=== PATIENT | female | born 1970 | race Caucasian/White ===

== ENCOUNTER 2022-06-17 11:55 | Emergency (ER) | payer OTHER, SELFPAY ==
--- NOTE | 2022-06-17 12:11 | XR_ITS ---
PROCEDURE INFORMATION: Exam: XR Right Knee Exam date and time: 06/17/2022 1:05 PM Age: 51 years old Clinical indication: Swelling or effusion of joint; Knee; Additional info: Pain, swelling. No trauma TECHNIQUE: Imaging protocol: Radiologic exam of the Right knee. Views: 3 views. COMPARISON: None FINDINGS: Bones/joints: Normal. Soft tissues: Soft tissue swelling is demonstrated in the expected region of the medial collateral ligament. Clinically correlate. IMPRESSION: 1. No evidence of acute osseous injury. 2. Soft tissue swelling superficial to the medial knee compartment. Ligamentous injury could not be excluded.
[2022-06-17 12:14] VITALS: BP 158/73; PULSE 74; RESP 18; TEMP 36.6; O2SAT 99; BMI 27.4
--- NOTE | 2022-06-17 12:41 | CA_ITS ---
FINAL REPORT CLINICAL HISTORY: Patient was out picking blackberries 1.5 weeks ago and woke up next morning to sore RLE. She states she wasn't able to walk it hurt so bad. Pain is in posterior distal thigh region. No known trauma. Smoker. FINDINGS: DUPLEX VENOUS SONOGRAPHY OF THE RIGHT LOWER EXTREMITY Multiple transverse and longitudinal scans were performed of the femoropopliteal deep venous system, with augmentation and compression maneuvers. FINDINGS: Normal phasic flow was noted in the visualized deep venous system. No intraluminal increased echogenicity is noted to suggest thrombus. There is normal compression and augmentation of the venous structures. No abnormal venous collaterals are seen. IMPRESSION: No evidence of deep venous thrombosis of the right lower extremity. Reviewed, Interpreted and Dictated by Diane Bhardwaj MD Transcribed by Bianca Barrett Authenticated and [facility]
--- NOTE | 2022-06-17 13:37 | HMH.EDUTC ---
[facility] [place] Disposition Clinical Impression: Leg edema, right Right knee pain Qualifiers: Chronicity: acute Qualified Code(s): M25.561 - Pain in right knee Disposition: Home, Self-Care Condition on Discharge: Good Instructions: DI for Knee Pain, Methylprednisolone Injection, Ketorolac Injection Additional Instructions: Rest the extremity, Wear the ted wrap for compression, Elevate the extremity as tolerated while you are resting. Follow up with Dr. Tenorio (orthopedics). I put in a referral but you need to call his office and schedule an appointment. Follow up with your regular doctor. GO TO THE ER FOR ANY WORSENING SYMPTOMS Prescriptions: methylPREDNISolone [Medrol] 4 mg PO DIRECTED 6 Days #21 packet Transmission Status: Received by Kid[facility] Referrals: Clarice Welsh APRN [Primary Care Provider] - Len Tenorio MD [Staff Physician] - Time of Disposition: 13:43 Medical Decision Making - Medical Records Medical records reviewed: No: I reviewed the patient's medical records. - [place] Inquiry Pt receiving controlled substance: No Vital Signs: 06/17/22 12:14 06/17/22 13:50 Temperature 97.8 F 97.8 F Temperature Source Oral Pulse Rate 74 Pulse Rate [Left] 74 Respiratory Rate 18 18 Blood Pressure 158/73 H Blood Pressure [Right Arm] 158/73 H Blood Pressure Mean [Right Arm] 101 02 Sat by Pulse Oximetry 99 Orders (Tests/Meds): ED MEDICATIONS Discontinued Medications Generic Name Dose Route Start Last Admin Trade Name Freq PRN Reason Stop Dose Admin Ketorolac Tromethamine 60 mg 06/17/22 13:39 06/17/22 13:40 Ketorolac 60mg/2ml Vial IM 06/17/22 13:40 60 mg ONCE ONE Administration Methylprednisolone Sodium Succinate 125 mg 06/17/22 13:39 06/17/22 13:40 Methylprednisolone Sod Succ 125mg Vial IM 06/17/22 13:40 125 mg ONCE ONE Administration - US Data US Images: Lower Extremity ED US Reviewed: Yes: I have viewed radiologist's interpretation Preliminary Findings: Normal/NAD [facility] [place] HPI - General Stated complaint: right leg pain Time Seen by Provider: 06/17/22 13:37 Mode of Arrival: Ambulatory Source of Information: Patient Limitations: No Limitations Description of Symptoms (Recalled from Triage Doc. by RN): patient comes in for right leg pain. patient states the pain is from the knee up to hip. started a little over a week ago. when she walks she states it feels like she her leg is going to give out. HEENT Symptoms (Recalled from RN notes): No Resp Symptoms (Recalled from RN notes): No Skin Symptoms (Recalled from RN notes): No MS Symptoms (Recalled from RN notes): Yes Functional Status (Recalled from RN notes): n/a - History of Present Illness Provider Complaint: She states that for the past 10 days she has had right knee pain and right leg swelling. She denies any injury, but it did start bothering her after she climbed a hill while picking berries. - Related Data Previous Rx's Medication Instructions Recorded methylPREDNISolone [Medrol] 4 mg PO DIRECTED 6 Days #21 06/17/22 packet Allergies Allergy/AdvReac Type Severity Reaction Status Date / Time No Known Allergies Allergy Verified 06/17/22 12:16 - Worker's Comp Is this a Worker's Comp case?: No [facility] History - Hepatitis A Screen Attestation statement:: This patient has been screened for Hepatitis A risk factors. I have reviewed the patient's past medical history: Yes ROS Obtained: Yes All systems reviewed & no additional complaints - Constitutional Constitutional: Denies chills, Denies fever(s) - Eyes Eyes: Denies eye discharge - ENT Ears, Nose, Mouth, and Throat: Denies dizziness, Denies otalgia, Denies sore throat, Denies vertigo/dizziness - Cardiovascular Cardiovascular: Denies chest pain - Respiratory Respiratory: Denies chest congestion, Denies cough - Gastrointestinal Gastrointestingal: Denies: abdominal pain, cramping, diarrhea,
[2022-06-17 13:50] VITALS: BP 158/73; PULSE 74; RESP 18; TEMP 36.6
== END 2022-06-17 13:53 | disposition home or self-care (01) ==
PROVIDERS: Emergency Provider Nurse Practitioner Family; PCP Nurse Practitioner Family
DX: M25.561 Pain in right knee (principal); R60.0 Localized edema; Z79.52 Long term (current) use of systemic steroids
CPT/HCPCS: 73562; 93971; 96372; 99213; G0463

== ENCOUNTER 2022-09-14 18:36 | Emergency (ER) | payer OTHER, SELFPAY ==
--- NOTE | 2022-09-14 18:42 | EXP.UTC ---
Discharge Plan Disposition Patient Disposition: Home, Self-Care Condition: Good Prescriptions Prescriptions: New cephalexin 500 mg capsule 500 mg PO QID Qty: 40 0RF No Action methylprednisolone 4 MG tablets,dose pack 4 mg PO DIRECTED 6 Days Qty: 21 0RF Referrals Follow up/Referrals: Lisa Barros APRN [Primary Care Provider] - See instructions Activity Restrictions/Add. Instructions Additional Instructions/Restrictions: Keep the wound clean and dry. Keep a dressing on it if you are going to be getting it dirty. Watch the for signs of infection, such as redness, swelling, drainage, fever. etc. Take tylenol or ibuprofen for pain. Follow up with your regular doctor. Return in 10 days to have the sutures removed. GO TO THE ER FOR ANY WORSENING SYMPTOMS OR CONCERNS. Clinical Impressions Clinical Impression: Laceration of hand, right Instructions Patient Instructions: DI for Laceration Repair, DI for Laceration Repair -- Simple Discharge ED Provider: Dalton Huang [facility] General Stated complaint: AO 09/14 @1330 LAC RIGHT HAND Time Seen by Provider: 09/14/22 18:41 History of Present Illness Provider Complaint: She is here with a laceration on the palm of her right hand. This occurred at home right before she came in. She slipped while cutting something with a knife. Related Data Previous Rx's Medication Instructions Recorded methylprednisolone 4 mg tablets in 4 mg PO DIRECTED 6 days #21 06/17/22 a dose pack packets cephalexin 500 mg capsule 500 mg PO QID #40 caps 09/14/22 Allergies Allergy/AdvReac Type Severity Reaction Status Date / Time No Known Allergies Allergy Verified 06/17/22 12:16 [facility] Social History Smoking Status: Never smoker alcohol intake: never current occupational status: employed Travel in the last 8 weeks: None ROS Obtained: Yes All systems reviewed & no additional complaints except as documented Constitutional Constitutional: Denies chills and Denies fever(s) Eyes Eyes: Denies eye discharge ENT Ears, Nose, Mouth, and Throat: Denies dizziness, Denies otalgia and Denies sore throat Cardiovascular Cardiovascular: Denies chest pain Respiratory Respiratory: Denies shortness of breath, Denies chest congestion, Denies cough, Denies stridor and Denies wheezing Gastrointestinal Gastrointestingal: Denies nausea or vomiting Musculoskeletal Musculoskeletal: Reports system reviewed and no additional complaints, except as documented and Denies arthralgias Integumentary/Breasts Skin/Breast: Reports as per HPI Neurologic Neurologic: Denies dizziness and Denies paresthesias Allergic/Immunologic Allergic/Immunologic: Denies wheezing Physical Exam General General appearance: alert and in no apparent distress Head Head exam: atraumatic, normocephalic and normal inspection Eye Eye exam: Present normal appearance, PERRL and EOMI ENT ENT exam: Present normal exam, normal oropharynx, mucous membranes moist, TM's normal bilaterally and normal external ear exam Neck Neck exam: Present normal inspection, full ROM and trachea midline; Absent meningismus or lymphadenopathy Chest Chest inspection: Present normal inspection and symmetric chest wall rise; Absent tenderness Respiratory Respiratory exam: Present normal lung sounds bilaterally; Absent respiratory distress Cardiovascular Cardiovascular exam: Present regular rate and normal rhythm; Absent JVD Abdominal Exam Abdominal exam: Present soft and normal bowel sounds; Absent distention, tenderness or guarding Extremities Exam Extremities exam: Present normal inspection, full ROM and normal capillary refill; Absent calf tenderness Back Exam Back exam: Present normal inspection; Absent tenderness Neurological Exam Neurological exam: Present alert and oriented X3 Psychiatric Psychiatric exam: Present normal affect and normal mood Skin
[2022-09-14 18:54] VITALS: BP 173/84; PULSE 86; RESP 17; TEMP 36.8; O2SAT 100; BMI 25.9
[2022-09-14 20:22] VITALS: BP 152/78; PULSE 82; RESP 18; TEMP 36.8; O2SAT 100
== END 2022-09-14 20:23 | disposition home or self-care (01) ==
PROVIDERS: Emergency Provider Nurse Practitioner Family; PCP Nurse Practitioner
DX: S61.411A Laceration without foreign body of right hand, initial encounter (principal); W26.0XXA Contact with knife, initial encounter
CPT/HCPCS: 12001; 99212; G0463

== ENCOUNTER 2022-09-24 13:29 | Emergency (ER) | payer OTHER, SELFPAY ==
[2022-09-24 15:15] VITALS: BP 109/76; PULSE 87; RESP 19; TEMP 36.6; O2SAT 100; BMI 26.6
[2022-09-24 15:17] VITALS: BP 109/76; PULSE 87; RESP 19; TEMP 36.6
== END 2022-09-24 15:19 | disposition home or self-care (01) ==
PROVIDERS: Emergency Provider Nurse Practitioner Family; PCP Nurse Practitioner
DX: Z48.02 Encounter for removal of sutures (principal)

== ENCOUNTER 2024-01-17 07:54 | Outpatient (CLI) | payer OTHER, SELFPAY ==
--- NOTE | 2024-01-17 07:58 | MM_ITS ---
PROCEDURE INFORMATION: Exam: Bilateral Screening 3D Mammography Exam date and time: 01/17/2024 7:55 AM Age: 53 years old Clinical indication: Screening mammogram TECHNIQUE: Imaging protocol: Bilateral Screening tomosynthesis and 2D mammography including computer-aided detection (CAD) when performed. COMPARISON: No relevant prior studies available. FINDINGS: MAMMOGRAPHY: Breast composition: There are scattered areas of fibroglandular density. Mass: 0.4 cm masses within the upper inner posterior left breast and lower inner the middle 1/3 right breast should be further assessed with spot views in CC/MLO projection. Ultrasound should also be performed. Architectural distortion: No new or suspicious architectural distortion. Calcifications: No new or suspicious calcifications are present Asymmetric density: No new or suspicious asymmetric density is present Skin thickening: None. Axillary adenopathy: None. IMPRESSION: Every attempt should be made to retrieve prior images. If prior images can be made available, an addendum will be provided. If there are is no significant interval change, annual mammographic screening will be recommended. If for whatever reason prior films cannot be retrieved within 2 weeks, the patient will be recalled for the followin.4 cm masses within the upper inner posterior left breast and lower inner the middle 1/3 right breast should be further assessed with spot views in CC/MLO projection. Ultrasound should also be performed. ASSESSMENT: BI-RADS category 0: Incomplete-need additional imaging evaluation and/or prior mammograms for comparison.
== END 2024-01-17 23:59 ==
LOC: RAD 07:55
PROVIDERS: PCP Family Medicine; Visit Provider Family Medicine
DX: Z12.31 Encounter for screening mammogram for malignant neoplasm of breast (principal)
CPT/HCPCS: 77063; 77067

== ENCOUNTER 2024-01-30 12:54 | Outpatient (CLI) | payer OTHER, SELFPAY ==
--- NOTE | 2024-01-30 12:55 | US_ITS ---
PROCEDURE INFORMATION: Exam: US Right Breast, Complete US Left Breast, Complete MG Bilateral Diagnostic Breast Tomosynthesis Exam date and time: 01/30/2024 12:57 PM Age: 53 years old Clinical indication: Callback for additional assessment of upper inner posterior left, lower inner middle 1/3 right possible mass identified on screening mammogram 01/17/2024 TECHNIQUE: Imaging protocol: Complete ultrasound of all four quadrants of the right breast and the retroareolar regions, including ultrasound of the axilla when performed. Complete ultrasound of all four quadrants of the left breast and the retroareolar regions, including ultrasound of the axilla when performed. Bilateral Diagnostic tomosynthesis and 2D mammography including computer-aided detection (CAD) when performed. Unilateral or bilateral exam. COMPARISON: MG MM DIG SCREENING MAMM BI W/CAD 01/17/2024 7:55 AM FINDINGS: MAMMOGRAPHY: Breast composition: There are scattered areas of fibroglandular density. Right: Anterior inner right circumscribed generally benign-appearing 0.6 cm mass persists without associated architectural distortion or suspicious calcifications. Left: Generally benign-appearing circumscribed mass in the lower inner anterior left breast measures 6 mm and upper inner left middle 1/3 measuring 4 mm, without associated architectural distortion or suspicious calcifications. ULTRASOUND: Bilateral four-quadrant and retroareolar and bilateral axilla ultrasound Hypoechoic horizontal microlobulated and mostly circumscribed masses are present as follows: 0.4 x 0.4 x 0.2 cm right 3 o'clock 4 cm from the nipple 1.0 x 0.7 x 0.3 cm right 8 o'clock 5 cm from the nipple 0.8 x 0.6 x 0.2 cm right 8 o'clock 5 cm from the nipple 0.5 x 0.8 x 0.4 cm left 10 o'clock 4 cm from the nipple Otherwise, only normal glandular structures are present in the bilateral breasts No suspicious solid or cystic mass is present. No benign-appearing solid or cystic mass is present. No architectural distortion or shadowing is present. No axillary adenopathy is present. IMPRESSION: Six-month follow-up bilateral breast ultrasound is recommended to assure stability of 4 morphologically similar appearing probably benign subcentimeter masses described above in detail ASSESSMENT: BI-RADS category 3: Probably benign
== END 2024-01-30 23:59 ==
LOC: RAD 12:55
PROVIDERS: PCP Family Medicine; Visit Provider Nurse Practitioner Family
DX: R92.8 Other abnormal and inconclusive findings on diagnostic imaging of breast (principal)
CPT/HCPCS: 76641; 77062; 77066; G0279

== ENCOUNTER 2024-02-14 12:14 | Day surgery (SDC) | payer OTHER, SELFPAY ==
[2024-02-13 13:06] VITALS: BMI 28.2
[2024-02-14] VITALS (7 sets, daily range): BP systolic 119–163; BP diastolic 55–80; PULSE 72–90; RESP 16–18; TEMP 36.2–37; O2SAT 97–100
[2024-02-14] MEDS: LACTATED RINGERS 1000ML 1,000 ML 25 ML IV (12:42)
--- NOTE | 2024-02-14 14:13 | EXP.ANES.CKL ---
[facility] Disclaimer: The information contained in this section may have been updated after the patient was seen, as this information can be updated by other users. Medical History Visit for suture removal Laceration of hand, right Leg edema, right Right knee pain Surgical History H/O wrist surgery H/O oral surgery History of cranial surgery History of ear surgery Family History Mother Diabetes Hypertension Father Heart attack, Onset Age: 29 Social History Smoking Status: Current every day smoker alcohol intake: never substance use type: marijuana current occupational status: employed and unemployed Travel in the last 8 weeks: None household members: children housing: house [facility] Anesthesia Checklist Patient Identification Patient Identification: Arm Band and Verbal (Name & ) Structural Data Admitted From: Home Planned Operative Procedure/s: Colonoscopy Consent for Planned Operative Procedure(s) Verified: Yes Verified Documents: Surgical Consent and History and Physical NPO Status Verified Time NPO: 20:00 Chart Verification Results Verified: ECG Additional verifications Patient : No Cardiovascular Assessment Heart Sounds: S1 & S2 Pulse Rhythm: Irregular Peripheral Edema: No Airway Assessment Mallampati Score:: Class II C-Spine Mobility Assessed: Yes (FROM) TMJ Mobility Assessed: Yes Dentition: Dentures-good fit (Nothing loose per pt.) Neurological Assessment Level of Consciousness: Awake, Alert, Appropriate and Follows Commands Hx Seizures: No Numbness or tingling in extremities: No Anesthesia Plan Anesthesia Risk discussed: Yes Anesthesia Plan: Verified ASA Class: II Anesthesia Type: MAC
--- NOTE | 2024-02-14 14:36 | HMH.SCOPE ---
Procedure: Date: 02/14/24 Patient Date of :: 1970 Procedure Performed:: Colonoscopy Indications:: The patient is a 53-year-old who presents for screening colonoscopy. Performing Provider:: Brenton Early MD Referring Provider:: Quinn Messer MD Sedation:: See RN records Procedure:: After placing the patient in the left lateral decubitus position, the colonoscopy was gently inserted into the rectum and under direct visualization advanced to the cecum which was identified by transillumination in the right lower quadrant, identification of the ileocecal valve, appendiceal orifice, and cecal strap. Color, texture, mucosa, and anatomy of the colon were carefully examined with the scope. Findings:: The quality of the bowel preparation was fair in the descending, sigmoid colon, and rectum. The remaining colon was a good preparation. There were a few scattered erosions seen in the cecum and ascending colon. Biopsies were obtained with a cold forceps for histology. The examined terminal ileum appeared normal. There was a diminutive (1 to 3 mm) sessile polyp in the sigmoid colon. The polyp was removed with cold forceps. There was erythematous and congested appearing mucosa in the mid to distal sigmoid colon. Biopsies were obtained with a cold forceps for histology. There were internal hemorrhoids seen on retroflexion view of the rectum Impression: Polyp of the sigmoid colon Scattered erosions in the right colon Erythematous and congested mucosa of the sigmoid colon Recommendations:: Await pathology results Will likely recommend a repeat colonoscopy in 5 years for surveillance, sooner if clinically indicated by pathology results Complications:: None Estimated blood obtained (mL): 0 Colonoscopy Component Colonoscopy Component Was a colonoscopy performed during today's procedure?: Yes Recommended follow up colonoscopy of at least 10 years?: Yes
--- NOTE | 2024-02-14 14:42 | P.PNANES_ITS ---
[facility] Anesthesia Record Part I Anesthesia Record I Intake, IV Amount: 500 Hydration: Adequate Estimated blood loss (mL): 1 Urine output (mL): 0 Blood Products used (#): none Blood Pressure: 119/55 SaO2: 99 Pulse Rate: 84 Airway Patency: Patent Respiratory Rate: 16 Temperature: 98.6 F Patient is:: Drowsy and Stable Stable to PACU at:: 14:44
== END 2024-02-14 15:00 | disposition home or self-care (01) ==
PROVIDERS: PCP Family Medicine; Visit Provider Internal Medicine
PROC: 0DJD8ZZ Inspection of Lower Intestinal Tract, Via Natural or Artificial Opening Endoscopic (ICD-10-PCS; CPT 45378; principal; 2024-02-14 13:30)
DX: Z12.11 Encounter for screening for malignant neoplasm of colon (principal); K64.8 Other hemorrhoids; D12.5 Benign neoplasm of sigmoid colon; K52.89 Other specified noninfective gastroenteritis and colitis
CPT/HCPCS: 45380

== ENCOUNTER 2024-08-09 10:21 | Outpatient (CLI) | payer OTHER, SELFPAY ==
--- NOTE | 2024-08-09 10:25 | US_ITS ---
PROCEDURE INFORMATION: Exam: US Left Breast, Complete US Right Breast, Complete Exam date and time: 08/09/2024 10:28 AM Age: 53 years old Clinical indication: Short-term follow-up bilateral breast ultrasound was recommended on 01/30/2024 to assess stability of the complicated cystic masses TECHNIQUE: Imaging protocol: Complete ultrasound of all four quadrants of the left breast and the retroareolar regions, including ultrasound of the axilla when performed. Complete ultrasound of all four quadrants of the right breast and the retroareolar regions, including ultrasound of the axilla when performed. COMPARISON: 01/30/2024 FINDINGS: ULTRASOUND: Breast ultrasound findings: Bilateral 4 quadrants and retroareolar breast ultrasound and bilateral axilla ultrasound Only normal glandular structures are present in the regions assessed No suspicious solid or cystic mass is present. Hypoechoic generally circumscribed morphologically similar-appearing masses with posterior acoustic enhancement bilaterally have features highly suggestive of complicated cysts. No morphologically suspicious/unique or dominant mass is present as follows: 0.4 cm left 3 o'clock 3 cm from the nipple 0.2 cm left 8 o'clock 2 cm from the nipple 0.7 cm left 10 o'clock 4 cm from the nipple 0.4 cm right 8 o'clock 5 cm from the nipple 0.3 cm left 8 o'clock 4 cm from the nipple 0.4 cm right retroareolar No architectural distortion or shadowing is present. No axillary adenopathy is present. IMPRESSION: Numerous bilateral morphologically similar-appearing cystic masses have features highly suggestive of benign complicated cysts. No dominant or morphologically suspicious mass is present No sonographic evidence of malignancy. Annual mammographic screening is recommended unless otherwise clinically indicated. ASSESSMENT: BI-RADS category 2: Benign
== END 2024-08-09 23:59 | disposition home or self-care (01) ==
PROVIDERS: PCP Family Medicine; Visit Provider Family Medicine
DX: R92.8 Other abnormal and inconclusive findings on diagnostic imaging of breast (principal)
CPT/HCPCS: 76641

== ENCOUNTER 2025-02-13 07:59 | Outpatient (CLI) | payer OTHER, SELFPAY ==
--- NOTE | 2025-02-13 08:30 | MM_ITS ---
PROCEDURE INFORMATION: Exam: MG Bilateral Screening 3D Mammography Exam date and time: 02/13/2025 8:23 AM Age: 54 years old Clinical indication: Screening examination. TECHNIQUE: Imaging protocol: Bilateral Screening tomosynthesis and 2D mammography including computer-aided detection (CAD) when performed. COMPARISON: 1. MG MM DIG MAMM BI DX W/CAD 01/30/2024 12:57 PM 2. MG MM DIG SCREENING MAMM BI W/CAD 01/17/2024 7:55 AM FINDINGS: MAMMOGRAPHY: Breast composition: There are scattered areas of fibroglandular density. Mass: None. Architectural distortion: None. Calcifications: No suspicious calcifications. Asymmetric density: None. Skin thickening: None. Axillary adenopathy: None. IMPRESSION: No mammographic evidence of malignancy. Annual screening is recommended unless otherwise clinically indicated. ASSESSMENT: BI-RADS Category 1: Negative.
== END 2025-02-13 23:59 | disposition home or self-care (01) ==
LOC: RAD 08:00
PROVIDERS: PCP Family Medicine; Visit Provider Family Medicine
DX: Z12.31 Encounter for screening mammogram for malignant neoplasm of breast (principal)
CPT/HCPCS: 77063; 77067